=== PATIENT | female | born 1980 | race Caucasian/White ===

== ENCOUNTER 2016-12-21 11:36 | Inpatient (IN) | payer MEDICAID, OTHER ==
[~2016-12-21] VITALS: Ht 162.6 cm; Wt 89.3 kg
[2016-12-21] MEDS ORDERED: PRENAT PO (11:57)
[2016-12-21 11:58] VITALS: BP 123/75; PULSE 75; RESP 18; Ht 162.6 cm; Wt 89.3 kg
--- NOTE | 2016-12-21 12:16 | HP ---
Date/Time of Note Date/Time of Note DATE: 12/21/16 TIME: 12:16 OB - History Hx of Present Free Text/Dictation 36 years old with care in [place] presents with complaint of contractions and she was noted to be in labor. She was 5 cm dilated. care in [place]. Records are available. ANDRE: December 31, 2016 by LMP consistent with 10 weeks ultrasound Estimated Due Date: Jan 01, 2017 : 3 Para: 2 Spontaneous : 0 Therapeutic : 0 Care: Good Care Ultrasounds: Normal mid trimester US Obstetrical Complications: None Past Family/Social History * Past Medical, Surgical, Family and Obstetric Histories reviewed from chart. OB Admission Exam Vital Signs Vital Signs Vital Signs Date Time Temp Pulse Resp B/P Pulse Ox O2 Delivery O2 Flow Rate FiO2 12/21/16 11:58 98.3 75 18 123/75 97 Room Air Physical Exam HEENT: WNL Lungs: Clear Abdomen: WNL Cervical Dilatation: 5cm Effacement: 75% Station: -1 Membranes: Intact Heart Rate: 120's Accelerations: Accelerations Present Decelerations: No Decelerations Varibility: Moderate Contractions on Admission: < 5 Minutes Apart Intensity: Moderate OB Assessment/Plan Reason for admission: active labor Other Assessment: IUP at 38 weeks and 2 days Active labor Good care GBS status unknown Plan: Expectant Management Other plan: Start ampicillin for GBS prophylaxis Anticipate Patient desires epidural for pain PANDA JOENS MD Dec 21, 2016 12:16 Risk of vaginal delivery with diabetes with suspected macrosomia considering current estimated weight including risk of shoulder dystocia and risk and complications of vaginal delivery with shoulder dystocia including but not limited to paralysis, and neurological damage versus musculoskeletal damage to the fetus discussed with the patient in detail. Options of section versus continuing vaginal delivery trial considering understanding the risk of shoulder dystocia discussed with the patient in detail. Risk and benefit of each discussed. Patient desires to proceed with section. Risk of section including risk of infection, bleeding, damage to surrounding structures including bowel and bladder and risk of blood transfusion including but not limited to blood borne infection including HIV, hepatitis B and C and transfusion reactions discussed with the patient in detail and informed consent was obtained. Patient verbalized understanding all above risks and desires to proceed. Keep the patient n.p.o. Consented for section PANDA JONES MD Dec 21, 2016 12:16 Consented for section PANDA JONES MD Dec 21, 2016 12:16
[2016-12-21] MEDS ORDERED: LACTATED RINGER'S 1,000 ML IV PRN (12:51)
[2016-12-21 12:58] LABS: ADD SCAN DIFF NO
[2016-12-21] MEDS ORDERED: CARBOPROST 250 MCG INJ IM PRN ×2 (13:00→21:00)
[2016-12-21] MEDS ORDERED: LIDOCAINE 1% (MPF) 30 ML INJ INJ PRN (13:00)
[2016-12-21] MEDS ORDERED: IBUPROFEN 600 MG TAB PO PRN (13:00)
[2016-12-21] MEDS ORDERED: BUTORPHANOL 2 MG INJ IV PRN (13:00)
[2016-12-21] MEDS ORDERED: OXYTOCIN 30 UNITS/LR 500 ML IV PRN ×2 (13:00→21:00)
[2016-12-21] MEDS ORDERED: MISOPROSTOL 200 MCG TAB PR PRN ×2 (13:00→21:00)
[2016-12-21] MEDS ORDERED: OXYTOCIN 30 UNITS/LR 500 ML IV SCH ×2 (13:00)
[2016-12-21] MEDS ORDERED: METHYLERGONOVINE 0.2 MG INJ IM PRN ×2 (13:00→21:00)
[2016-12-21 13:11] LABS: BASOPHILS % 0.2 % (0.0-2.0); EOSINOPHILS % 0.3 % (0.0-7.0); HEMATOCRIT 36.2 % (37.0-47.0); HEMOGLOBIN 12.7 g/dl (12.0-16.0); LYMPHOCYTES # 1.1 10^3/ul (0.8-2.9); LYMPHOCYTES % 11.6 % (15.0-51.0); MEAN CORPUSCULAR HEMOGLOBIN 32.6 pg (29.0-33.0); MEAN CORPUSCULAR HGB CONC 35.1 g/dl (32.0-37.0); MEAN CORPUSCULAR VOLUME 92.8 fl (82.0-101.0); MEAN PLATELET VOLUME 11.9 fl (7.4-10.4); MONOCYTE # 0.3 10^3/ul (0.3-0.9); MONOCYTES % 3.3 % (0.0-11.0); NEUTROPHIL # 7.9 10^3/ul (1.6-7.5); PLATELET COUNT 181 10^3/UL (140-415); RED CELL DISTRIBUTION WIDTH 14.2 % (11.5-14.5); WHITE BLOOD COUNT 9.4 10^3/ul (4.8-10.8)
[2016-12-21 13:31] LABS: INR 0.89; PT RATIO 0.9
[2016-12-21 13:32] LABS: PARTIAL THROMBOPLASTIN TIME 25.2 Sec (25.0-35.0)
[2016-12-21] MEDS: LACTATED RINGER'S 1,000 ML IV SCH ×2 (14:37→19:55)
[2016-12-21] MEDS ORDERED: FENTAnyl 2MCG/ML-ROPIV 0.2% 100 ML ONE (15:43)
[2016-12-21] MEDS ORDERED: KETOROLAC 30 MG INJ IV PRN (16:00)
[2016-12-21] MEDS ORDERED: PROCHLORPERAZINE 10 MG INJ IV PRN (16:00)
[2016-12-21] MEDS ORDERED: DIPHENHYDRAMINE 50 MG INJ IV PRN (16:00)
[2016-12-21] MEDS ORDERED: NALOXONE (0.4 MG/ML) INJ IV PRN (16:00)
[2016-12-21] MEDS ORDERED: HYDROmorphONE 1 MG/ML SYG IV PRN ×2 (16:00)
[2016-12-21] MEDS ORDERED: ONDANSETRON 4 MG INJ IV PRN ×2 (16:00→21:00)
[2016-12-21] MEDS ORDERED: FENTAnyl 2MCG/ML-ROPIV 0.2% 100 ML BAG EPI SCH (16:00)
[2016-12-21] MEDS: LACTATED RINGER'S 1,000 ML IV* SCH (20:36)
--- NOTE | 2016-12-21 20:36 | LDN ---
Date/Time of Note Date/Time of Note DATE: 12/21/16 TIME: 20:33 Delivery Summary Variable deceleration during the second stage of labor when the head was at the perineum noted. There was particulate thin meconium Placenta Delivered: Spontaneously Meconium: Particulate Episiotomy: No Perineal laceration: 2 Laceration repair: Second perineal laceration occurred during delivery. Repaired using 2-0 chromic there was a first-degree superficial labial laceration in the upper part of the labia minora that was not bleeding and did not require any suture Anesthesia type: Epidural Estimated blood loss: 300 Sponge & Needle done & correct: Yes Any foreign bodies felt in the: No Problems: Infant Delivery Information Sex Infant Sex: male Apgars 1 Minute: 8 5 Minute: 9 Suctioning Nose & mouth suctioned at joceline: Yes Delee suction performed: Yes Umbilical Cord Umbilical cord with: 3 Vessels Cord presentations: nuchal cord Nuchal cord present X: 1 Cord Blood was obtained: Yes PANDA JONES MD Dec 21, 2016 20:36
--- NOTE | 2016-12-21 20:50 | DELSUM ---
Delivery Summary A-C Datetime Report Generated by CPN: 12/21/2016 20:50 DELIVERY PERSONNEL Hay Buckler: Long, Georgina MATERNAL INFORMATION Delivery Anesthesia: Epidural Medications in Delivery: oxytocin 30 in 500ml lr Estimated Blood Loss (ml): 320 Placenta Cultured: No Maternal Complications: None LABOR SUMMARY EDC: 01/02/2017 00:00 No. Babies in Womb: 1 Attempted: No Labor Anesthesia: Epidural LABOR INFORMATION Reason for Induction: Not Applicable Onset of Labor: 12/21/2016 04:00 Complete Dilatation: 12/21/2016 19:21 Oxytocin: N/A Group B Beta Strep: Negative Group B Beta Strep: Done, Result Unknown Antibiotics # of Doses: 0 Steroids Given: None Reason Steroids Not Administered: Not Applicable MEMBRANES Membranes Rupture Method: Spontaneous Membranes Rupture Method: Spontaneous Rupture of Membranes: 12/21/2016 15:54 Length of Rupture (hr): 4.35 Amniotic Fluid Color: Light Meconium Amniotic Fluid Color: Clear Amniotic Fluid Amount: Moderate Amniotic Fluid Amount: Small Amniotic Fluid Odor: None STAGES OF LABOR Stage 1 hr: 15 Stage 1 min: 21 Stage 2 hr: 0 Stage 2 min: 54 Stage 3 hr: 0 Stage 3 min: 13 Total Time in Labor hr: 16 Total Time in Labor min: 28 VAGINAL DELIVERY Episiotomy: None Laceration Extension: Second Degree Laceration Type: Perineal Laceration Repair: Yes Initial Vag Sponge Count: 10 Final Vag Sponge Count: 10 Initial Vag Sharps Count: 1 Final Vag Sharps Count: 2 Sponge Count Correct: Yes Sharps Count Correct: Yes Count Comment: 2 o chromic added for perineal repair BABY A INFORMATION Infant Delivery Date/Time: 12/21/2016 20:15 Method of Delivery: Vaginal Born in Route : No : N/A Forceps: N/A Vacuum Extraction: N/A Shoulder Dystocia : N/A SHOULDER DYSTOCIA BABY A Delivery Date/Time: 12/21/2016 20:15 PRESENTATION/POSITION BABY A Presentation: Cephalic Cephalic Presentation: Vertex Vertex Position: Left Occipital Anterior Breech Presentation: N/A PLACENTA INFORMATION BABY A Placenta Delivery Time : 12/21/2016 20:28 Placenta Method of Delivery: Spontaneous Placenta Status: Delivered SCORES BABY A Heart Rate 1 min: >100 bpm Resp Effort 1 min: Good Cry Reflex Irritability 1 min: Cough/Sneeze/Pulls Away Muscle Tone 1 min: Active Motion Color 1 min: Blue/Pale Resuscitation Effort 1 min: Tactile Stimulation SCORE 1 MIN: 8 Heart Rate 5 min: >100 bpm Resp Effort 5 min: Good Cry Reflex Irritability 5 min: Cough/Sneeze/Pulls Away Muscle Tone 5 min: Active Motion Color 5 min: Body [place], Extremit Blue Resuscitation Effort 5 min: Tactile Stimulation SCORE 5 MIN: 9 INFANT INFORMATION BABY A Gestational Age at Delivery: 38.2 Gestational Status: Early Term- 37- 38.6 Weeks Infant Outcome : Liveborn Infant Condition : Stable Sex: Male IDENTIFICATION/MEDS BABY A ID Band Number: [id number] ID Band Location: Right Leg; Left Arm Sensor Number: [id number] Sensor Location : Cord Clamp Vitamin K Given : Not Given Erythromycin Given: Not Given WEIGHT/LENGTH BABY A Infant Birthweight (gm): 3490 Weight (lb): 7 Infant Weight (oz): 11 Length (in): 20.25 Length (cm): 51.44 CORD INFORMATION BABY A No. Cord Vessels: 3 Nuchal Cord : Around Neck x1, Loose Cord Blood Taken: Yes Infant Suction: Mouth; Nose ASSESSMENT BABY A Complications: Multiple Variable Decels; Meconium Physical Findings at Delivery: Within Normal Limits Infant Respirations: Appears Normal Activity Specialist/ALS Called : No Care By: RONI SEE RN; RT Transferred To: Remains with Mother
[2016-12-21] MEDS ORDERED: LANOLIN 7 GM TUBE TOP PRN (21:00)
[2016-12-21] MEDS ORDERED: ZOLPIDEM 5 MG TAB PO PRN (21:00)
[2016-12-21] MEDS ORDERED: ACETAMINOPHEN 325 MG TAB PO PRN (21:00)
[2016-12-21] MEDS ORDERED: ACETAMINOPHEN/CODEINE #3 TAB PO PRN (21:00)
[2016-12-21] MEDS ORDERED: DIPHENHYDRAMINE 25 MG CAP PO PRN (21:00)
[2016-12-21 23:00] VITALS: BP 109/60; PULSE 83; RESP 19
[2016-12-22] MEDS: SENNA/DOCUSATE NA (8.6MG/50MG) TAB PO SCH ×3 (00:54→21:59)
[2016-12-22] MEDS: IBUPROFEN 600 MG TAB PO SCH ×4 (00:54→15:00)
[2016-12-22] MEDS: MULTIVIT/MIN/FOLATE/IRON/PREN TAB PO SCH ×2 (00:54→09:40)
[2016-12-22] MEDS: LACTATED RINGER'S 1,000 ML IV* SCH (01:26)
[2016-12-22] MEDS: WITCH HAZEL/GLYCERIN PAD PR PRN ×2 (01:28→15:59)
[2016-12-22 04:00] VITALS: BP 117/70; PULSE 86; RESP 18
[2016-12-22 08:15] VITALS: BP 93/54; PULSE 65; RESP 19
[2016-12-22 09:27] LABS: ADD SCAN DIFF NO
[2016-12-22 09:31] LABS: BASOPHILS % 0.2 % (0.0-2.0); EOSINOPHILS # 0.1 10^3/ul (0.0-0.5); EOSINOPHILS % 0.5 % (0.0-7.0); HEMATOCRIT 31.7 % (37.0-47.0); HEMOGLOBIN 10.7 g/dl (12.0-16.0); LYMPHOCYTES # 1.8 10^3/ul (0.8-2.9); LYMPHOCYTES % 18.1 % (15.0-51.0); MEAN CORPUSCULAR HEMOGLOBIN 31.8 pg (29.0-33.0); MEAN CORPUSCULAR HGB CONC 33.8 g/dl (32.0-37.0); MEAN CORPUSCULAR VOLUME 94.1 fl (82.0-101.0); MEAN PLATELET VOLUME 11.7 fl (7.4-10.4); MONOCYTE # 0.5 10^3/ul (0.3-0.9); MONOCYTES % 4.9 % (0.0-11.0); NEUTROPHIL # 7.5 10^3/ul (1.6-7.5); NEUTROPHILS % 75.8 % (39.0-77.0); PLATELET COUNT 147 10^3/UL (140-415); RED BLOOD COUNT 3.37 10^6/ul (4.20-5.40); RED CELL DISTRIBUTION WIDTH 14.3 % (11.5-14.5); WHITE BLOOD COUNT 9.9 10^3/ul (4.8-10.8)
--- NOTE | 2016-12-22 10:43 | QN ---
Documentation Comment Laboratory Tests Test 12/21/16 12:40 12/22/16 09:04 White Blood Count 9.410^3/ul 9.910^3/ul Red Blood Count 3.9010^6/ul 3.3710^6/ul Hemoglobin 12.7g/dl 10.7g/dl Hematocrit 36.2% 31.7% Mean Corpuscular Volume 92.8fl 94.1fl Mean Corpuscular Hemoglobin 32.6pg 31.8pg Mean Corpuscular Hemoglobin Concent 35.1g/dl 33.8g/dl Red Cell Distribution Width 14.2% 14.3% Platelet Count 77935^3/UL 94754^3/UL Mean Platelet Volume 11.9fl 11.7fl Neutrophils % 84.0% 75.8% Lymphocytes % 11.6% 18.1% Monocytes % 3.3% 4.9% Eosinophils % 0.3% 0.5% Basophils % 0.2% 0.2% Nucleated Red Blood Cells % 0.0/100WBC 0.0/100WBC Neutrophils # 7.910^3/ul 7.510^3/ul Lymphocytes # 1.110^3/ul 1.810^3/ul Monocytes # 0.310^3/ul 0.510^3/ul Eosinophils # 0.010^3/ul 0.110^3/ul Basophils # 0.010^3/ul 0.010^3/ul Nucleated Red Blood Cells # 0.010^3/ul 0.010^3/ul Prothrombin Time 12.0Sec Prothrombin Time Ratio 0.9 INR International Normalized Ratio 0.89 Activated Partial Thromboplast Time 25.2Sec Rapid Plasma Reagin NONREACTIVE Current Medications Medications (Trade) Dose Ordered Sig/Aaron Route PRN Reason Start Time Stop Time Status Last Admin Dose Admin Lactated Ringer's (Lr) 1,000 ml @ 125 mls/hr Q8H IV 12/21/16 12:51 12/21/16 20:38 DC 12/21/16 19:55 Butorphanol Tartrate (Stadol) 2 mg Q2H PRN IV PAIN 12/21/16 13:00 12/21/16 20:38 DC Lidocaine 30 ml 30 ml ONCE PRN INJ EPISIOTOMY/TEARING 12/21/16 13:00 12/21/16 20:38 DC Oxytocin/Lactated Ringer's 500 ml @ 125 mls/hr ONCE -MAY REPEAT X1 IV 12/21/16 13:00 12/21/16 20:38 DC 12/21/16 20:21 Oxytocin/Lactated Ringer's 500 ml @ 125 mls/hr ONCE IV 12/21/16 13:00 12/21/16 20:38 DC Ibuprofen 600 mg 600 mg ONCE PRN PO Mild Pain (Pain Score 1-3) 12/21/16 13:00 12/21/16 20:39 DC Lactated Ringer's 1,000 ml @ 2,000 mls/hr Q30M PRN IV PRE-EPIDURAL BOLUS 12/21/16 12:51 12/21/16 20:39 DC 12/21/16 15:44 Oxytocin/Lactated Ringer's 500 ml @ 0 mls/hr ONCE PRN IV For Hemorrhage Management 12/21/16 13:00 12/21/16 20:39 DC Methylergonovine Maleate (Methergine) 0.2 mg ONCE PRN IM VAGINAL BLEEDING 12/21/16 13:00 12/21/16 20:39 DC Carboprost Tromethamine (Hemabate) 250 mcg ONCE PRN IM VAGINAL BLEEDING 12/21/16 13:00 12/21/16 20:39 DC Misoprostol 1000 mcg 1,000 mcg ONCE PRN TX VAGINAL BLEEDING 12/21/16 13:00 12/21/16 20:39 DC Fentanyl/ Ropivacaine 100 ml @ ud STK-MED ONCE .ROUTE 12/21/16 15:43 12/21/16 15:44 DC Naloxone HCl (Narcan) 0.1 mg Q2M PRN IV FOR RESP RATE 8 OR LESS 12/21/16 16:00 12/21/16 20:38 DC Ketorolac Tromethamine (Toradol) 30 mg Q6H PRN IV PAIN 12/21/16 16:00 12/21/16 20:38 DC Hydromorphone HCl (Dilaudid) 0.2 mg Q3H PRN IV PAIN LEVEL 1-5 12/21/16 16:00 12/21/16 20:38 DC Hydromorphone HCl (Dilaudid) 0.4 mg Q3H PRN IV PAIN LEVEL 6-10 12/21/16 16:00 12/21/16 20:38 DC Diphenhydramine HCl (Benadryl) 25 mg Q6H PRN IV ITCHING 12/21/16 16:00 12/21/16 20:38 DC Ondansetron HCl (Zofran Inj) 4 mg Q6H PRN IV NAUSEA AND/OR VOMITING 12/21/16 16:00 12/21/16 20:39 DC Prochlorperazine (Compazine Inj) 10 mg ONCE PRN IV NAUSEA AND/OR VOMITING 12/21/16 16:00 12/21/16 20:39 DC Fentanyl/ Ropivacaine 100 ml 100 ml EPIDURAL INFUSION EPI 12/21/16 16:00 12/21/16 20:39 DC Lactated Ringer's (Lr) 1,000 ml @ 125 mls/hr Q8H IV* 12/21/16 20:36 12/22/16 06:19 DC 12/22/16 01:26 Ibuprofen (Motrin) 600 mg Q6H PO 12/21/16 21:00 12/22/16 05:42 Acetaminophen/ Codeine Phosphate (Tylenol No.3) 2 tab Q4H PRN PO PAIN LEVEL 6-10 12/21/16 21:00 Ondansetron HCl (Zofran Inj) 4 mg Q6H PRN IV NAUSEA AND/OR VOMITING 12/21/16 21:00 Diphenhydramine HCl (Benadryl) 25 mg Q6H PRN PO PRURITUS 12/21/16 21:00 Zolpidem Tartrate (Ambien) 5 mg QHS PRN PO INSOMNIA 12/21/16 21:00 Senna/Docusate Sodium (Senokot-S) 1 tab BID PO 12/21/16 21:00 12/22/16 09:40 Witch Sandra/ Glycerin (Tucks Pads) 1 pad BEDSIDE MEDICATION PRN TX HEMORRHOID/EPISIOTMY PAIN 12/21/16 21:00 12/22/16 01:28 Lanolin (Uhu-C-Lkokgl) 1 applic BEDSIDE MEDICATION PRN TOP BEDSIDE FOR EVETTE TO NIPPLES 12/21/16 21:00 12/22/16 01:29 Measles/Mumps/ Rubella Vaccine Live (Mmr Ii Vaccine) 0.5 ml ONCE ONCE SC* 12/23/16 09:00 12/23/16 09:01 Diphtheria/ Tetanus/Acell Pertussis (Adacel) 0.5 ml ONCE ONCE IM* 12/23/16 09:00 12/23/16 09:01 Varicella Virus Vaccine Live (Varivax Vaccine With Diluent) 1,350 unit ONCE ONCE SC* 12/23/16 09:00 12/23/16 09:01 Acetaminophen 650 mg 650 mg Q4H PRN PO ELEVATED TEMPERATURE 12/21/16 21:00 Oxytocin/Lactated Ringer's 500 ml @ 0 mls/hr ONCE PRN IV For Hemorrhage Management 12/21/16 21:00 12/21/16 21:11 Methylergonovine Maleate (Methergine) 0.2 mg ONCE PRN IM VAGINAL BLEEDING 12/21/16 21:00 Carboprost Tromethamine (Hemabate) 250 mcg ONCE PRN IM VAGINAL BLEEDING 12/21/16 21:00 Misoprostol (Cytotec) 1,000 mcg ONCE PRN TX VAGINAL BLEEDING 12/21/16 21:00 Prenat Multivit/ [place]/Iron/Folic Ac ( S) 1 tab DAILY PO 12/21/16 21:00 12/22/16 09:40 December 22, 2016 day 1, This patient is a 36 years old 3 para 2 with EDC of January 01, 2016 who came to the hospital yesterday in active labor, She progressed to complete dilatation and had an spontaneous vaginal delivery Today which is her first day of delivery she is doing well she is afebrile Abdomen is soft fundus is firm She has moderate amount of lochia, no excessive bleeding Her breasts are soft nipples are intact Her chest is clear no CVA tenderness She had a second-degree laceration but on examination today the perineum is healing well She is complaining of slight left leg. But on examination there is no calf tenderness Her Homans sign is negative She is now ambulatory and taking her vitamins Status/Problems: Doing well, Stable RUI BARRETT MD Dec 22, 2016 10:36
[2016-12-22 16:00] VITALS: BP 107/67; PULSE 85; RESP 19
[2016-12-22 20:00] VITALS: BP 113/67; PULSE 81; RESP 20
[2016-12-23 04:00] VITALS: BP 110/60; PULSE 80; RESP 20
[2016-12-23] MEDS: IBUPROFEN 600 MG TAB PO SCH ×4 (06:40→16:09)
[2016-12-23 08:30] VITALS: BP 112/76; PULSE 78; RESP 18
[2016-12-23] MEDS ORDERED: MEASLES,MUMPS,RUBELLA VACCINE INJ SC* ONE (09:00)
[2016-12-23] MEDS ORDERED: VARICELLA VACCINE LIVE/PF 1,350 UNIT/0.5 ML ML SC* ONE (09:00)
[2016-12-23] MEDS ORDERED: DIPHTH/TET/ACEL PERTUSS (ADULT) 0.5 ML VIAL IM* ONE (09:00)
[2016-12-23] MEDS: MULTIVIT/MIN/FOLATE/IRON/PREN TAB PO SCH (09:33)
[2016-12-23] MEDS: SENNA/DOCUSATE NA (8.6MG/50MG) TAB PO SCH (09:34)
--- NOTE | 2016-12-23 13:57 | DS ---
Date/Time of Note Date/Time of Note DATE: 12/23/16 TIME: 13:57 Obstetrical Discharge Record Final Diagnosis Final Diagnosis: Term delivered Vaginal Delivery Obstetrical Delivery: Spontaneous Condition on Discharge Physical Assessment Voiding: Yes Bowel Movement: Yes Breast: Soft, non-tender Fundus: Firm Calf Tenderness: No Patient Condition: Stable MATT PECK MD Dec 23, 2016 13:57
--- NOTE | 2016-12-23 14:01 | QN ---
Documentation Comment POD 2 pt doing well vss exam wnl ext no edema a/p POD 2 pt doing well diet discussed recheck BS before dinner MATT PECK MD Dec 23, 2016 14:01
[2016-12-23 16:23] VITALS: BP 127/86; PULSE 86; RESP 18
== END 2016-12-23 18:16 | disposition home or self-care (01) | DRG 775 ==
LOC: OBT 11:36 → L-D 11:37 → OBT 12:08 → L-D 12:08 → PP1 22:50
PROVIDERS: ADMIT Obstetrics & Gynecology Obstetrics; ATTEND Obstetrics & Gynecology Obstetrics
PROC: 10E0XZZ Delivery of Products of Conception, External Approach (ICD-10-PCS; principal; 2016-12-21)
PROC: 0KQM0ZZ Repair Perineum Muscle, Open Approach (ICD-10-PCS; 2016-12-21)
DX: O69.81X0 Labor and delivery complicated by cord around neck, without compression, not applicable or unspecified (principal); O70.1 Second degree perineal laceration during delivery; Z3A.38 38 weeks gestation of pregnancy; Z37.0 Single live birth
CPT/HCPCS: 62319; 85025; 85610; 85730; 86592; 86900; 86901; 90715; 90716; 99464; G0463; J2590; J3010; J7120